=== PATIENT | female | born 1945 | race Caucasian/White ===

== ENCOUNTER 2019-02-25 10:02 | Day surgery (SDC) ==
[2019-02-11 08:41] LABS: URINE SOURCE CLEAN CATCH
--- NOTE | 2019-02-11 09:08 | EKG Report ---
Test Performed on : 02/11/2019 08:27:11 AM Test Reason : PAT Blood Pressure : / mmHG Vent. Rate : 062 BPM Atrial Rate : 062 BPM P-R Int : 150 ms QRS Dur : 134 ms QT Int : 430 ms P-R-T Axes : 065 -30 065 degrees QTc Int : 436 ms Normal sinus rhythm. Left axis deviation Right bundle branch block Abnormal ECG When compared with ECG of 13-NOV-2017 08:17, T wave inversion no longer evident in Inferior leads T wave amplitude has decreased in Lateral leads Confirmed by Joel NICOLAS, Luiz Shin ([id number]) on 02/12/2019 7:42:39 PM
[2019-02-11 09:25] LABS: BASO# 0.07 X1000 (0.0-0.2); EOS# 0.27 X1000 (0.0-0.7); HEMATOCRIT 39.5 % (37.0-47.0); HEMOGLOBIN 12.9 g/dL (12.0-16.0); LYMPH# 1.29 X1000 (1.2-3.4); MCH 30.1 PG (27-31); MCHC 32.7 g/dL (33-37); MCV 92.1 FL (81-99); MONO# 0.57 X1000 (0.11-0.59); MONO% 8.4 % (1.7-9.3); MPV 9.7 FL (7.4-10.4); NEUT% 67.6 % (42.2-75.2); PLT 346 X1000 (130-400); RBC 4.29 XMIL (4.2-5.4); RDW 12.8 % (11.5-14.5)
[2019-02-11 09:31] LABS: INR 1.06
[2019-02-11 09:32] LABS: PTT 31.2 Seconds (22.3-41.8)
[2019-02-11 09:38] LABS: HEMOGLOBIN A1C 5.5 % (4.8-6.0)
[2019-02-11 09:44] LABS: CALCIUM 9.8 mg/dL (8.8-10.2); CREATININE 1.1 mg/dL (0.5-0.9); POTASSIUM 4.4 mmol/L (3.5-5.1)
[2019-02-11 11:27] LABS: BILIRUBIN URINE NEGATIVE (NEGATIVE); BLOOD URINE TRACE (NEGATIVE); COLOR YELLOW; GLUCOSE URINE NEGATIVE (NEGATIVE); KETONE URINE TRACE mg/dL (NEGATIVE); LEUKOCYTES URINE LARGE (NEGATIVE); NITRITE URINE POSITIVE (NEGATIVE); PH URINE 5.5; PROTEIN URINE TRACE mg/dL (NEGATIVE); SP GRAVITY URINE 1.026; TURBIDITY URINE HAZY (CLEAR); UROBILINOGEN URINE NORMAL (NORMAL)
[2019-02-11 11:29] LABS: UR EPITHELIAL CELLS <10 /HPF (<10); URINE BACTERIA 4+ /HPF; URINE RBC <10 /HPF (<10); URINE WBC 20-40 /HPF (<10)
[~2019-02-25 10:02] MED LIST: CYMBALTA PO SCH; NEURONTIN PO SCH
[2019-02-25] MEDS ORDERED: DIPRIVAN 1% ONE (10:23)
[2019-02-25] MEDS ORDERED: VERSED ONE (10:23)
[2019-02-25] MEDS ORDERED: FENTANYL ONE (10:23)
[2019-02-25] MEDS ORDERED: CELEBREX ONE (10:39)
[2019-02-25] MEDS ORDERED: COLACE ONE (10:39)
[2019-02-25] MEDS ORDERED: PEPCID ONE (10:39)
[2019-02-25] MEDS ORDERED: REGLAN ONE (10:39)
[2019-02-25] MEDS ORDERED: LYRICA ONE (10:39)
[2019-02-25] MEDS ORDERED: KEFZOL 1 GM/D5W 2 GM/100 ML IVPB ONE (10:40)
[2019-02-25] MEDS ORDERED: LR 1,000 ML ONE (10:40)
[2019-02-25] MEDS ORDERED: TRANSDERM-SCOP ONE (10:51)
[2019-02-25] MEDS ORDERED: DURAMORPH ONE (11:34)
[2019-02-25] MEDS ORDERED: TORADOL ONE ×2 (11:34→13:56)
[2019-02-25] MEDS ORDERED: MARCAINE 0.25% PF ONE (11:35)
[2019-02-25] MEDS ORDERED: CYKLOKAPRON 1,000 MG/NS 1,000 MG/100 ML IVPB ONE ×2 (11:35)
[2019-02-25] MEDS ORDERED: VANCOMYCIN ONE (11:35)
[2019-02-25] MEDS ORDERED: SODIUM CHLORIDE 0.9% ONE (11:35)
[2019-02-25] MEDS ORDERED: EXPAREL 1.3% ONE (11:35)
[2019-02-25] MEDS ORDERED: XYLOCAINE-MPF 2% ONE (11:53)
[2019-02-25] MEDS ORDERED: ATROPINE ONE (12:14)
[2019-02-25] MEDS ORDERED: ZOFRAN ONE (12:17)
[2019-02-25] MEDS ORDERED: DECADRON ONE ×2 (12:17→12:19)
[2019-02-25] MEDS ORDERED: OFIRMEV 1000 MG/ISOTONIC SOLN 1,000 MG/100 ML BOTTLE ONE ×2 (12:17→12:19)
[2019-02-25 13:27] LABS: URINE SOURCE CATH
[2019-02-25 13:33] LABS: BILIRUBIN URINE NEGATIVE (NEGATIVE); BLOOD URINE NEGATIVE (NEGATIVE); COLOR YELLOW; GLUCOSE URINE NEGATIVE (NEGATIVE); KETONE URINE NEGATIVE (NEGATIVE); LEUKOCYTES URINE NEGATIVE (NEGATIVE); NITRITE URINE NEGATIVE (NEGATIVE); PROTEIN URINE NEGATIVE (NEGATIVE); SP GRAVITY URINE 1.012; TURBIDITY URINE CLEAR (CLEAR); UROBILINOGEN URINE NORMAL (NORMAL)
[2019-02-25 13:37] LABS: UR EPITHELIAL CELLS <10 /HPF (<10); URINE BACTERIA NEGATIVE /HPF; URINE RBC <10 /HPF (<10); URINE WBC <10 /HPF (<10)
[2019-02-25] MEDS ORDERED: DILAUDID ONE (14:45)
[2019-02-25] MEDS: COZAAR PO SCH (14:48)
[2019-02-25] MEDS ORDERED: NORCO-10 ONE (15:02)
--- NOTE | 2019-02-25 15:05 | Diag Imaging Result Doc PS360 ---
KNEE 1-2 VIEWS-LEFT - 02/25/2019 INDICATION: post op TECHNIQUE: Two views COMPARISON: None FINDINGS: There has been placement of a long stemmed, hinged total knee prosthesis. Alignment is anatomic. No hardware fracture or loosening. IMPRESSION: No complication. Electronically signed by Sina Mcgarry 02/25/2019 3:03 PM
[2019-02-25] MEDS ORDERED: NS 1,000 ML ONE (15:07)
[2019-02-25] MEDS ORDERED: ZOFRAN PO PRN (16:00)
[2019-02-25] MEDS ORDERED: FLU VACCINE IM ONE (16:02)
[2019-02-25] MEDS: NS 1,000 ML IV SCH (16:08)
[2019-02-25] MEDS: TEGRETOL XR PO SCH ×2 (17:47→22:21)
[2019-02-25] MEDS: NORCO-10 PO PRN (19:26)
[2019-02-25] MEDS ORDERED: TYLENOL PO SCH (20:00)
[2019-02-25] MEDS: KEFZOL 2 GM/D5W 2 GM/50 ML IVPB IV SCH (20:21)
[2019-02-25] MEDS: COLACE PO SCH (20:22)
[2019-02-25] MEDS: PERIDEX MT SCH (20:23)
[2019-02-25] MEDS ORDERED: CYMBALTA PO SCH (21:00)
[2019-02-25] MEDS ORDERED: ZOCOR PO SCH (21:00)
--- NOTE | 2019-02-25 21:29 | OPERATIVE NOTE ---
PROCEDURE DATE: 02/25/2019 PREOPERATIVE DIAGNOSIS: Degenerative osteoarthritis of the left knee. POSTOPERATIVE DIAGNOSIS: Degenerative osteoarthritis of the left knee. PROCEDURE: Left total knee arthroplasty with DePuy TC3 size 2.5 femur with a 31 mm [place] femoral sleeve with a 75 x 45 mm [place] fluted stem and a size 2.5 tibial tray with a 37 mm metaphyseal sleeve and a 75 x 12 universal fluted stem, a 17.5 mm rotating platform tibial insert, and a 32 mm round dome patella. SURGEON: Kwabena Dominguez MD SHEET [employer] WORK FURNACE INSTALLER: MARGY Burns who was necessary for retraction and manipulation of the extremity during the case and improved efficiency. SECOND ASSISTANTS: MARGY Owusu and Aldo Morris RN. ANESTHESIA: General. IV FLUIDS: 2000 mL of lactated Ringer's. ESTIMATED BLOOD LOSS: 20 mL. TOURNIQUET TIME: 100 minutes at 350 mmHg. COMPLICATIONS: None. INDICATION: The patient is a 73-year-old female with chronic history of worsening pain and discomfort of the left knee. Her pain has progressed to affect her activities of daily living. X- rays revealed degenerative osteoarthritis. Recommendation to proceed with left total knee arthroplasty was offered. Risks and benefits of surgery were explained, including the risks of anesthesia, , bleeding, infection, failure to relieve pain, postoperative stiffness, nerve injury, blood clots, and other imponderables. All questions were answered, and the patient and family wished to proceed with surgery. DETAILS OF OPERATION: The patient was taken to the operating room and placed supine on the operating table. Once adequate anesthesia was obtained, this patient's left lower extremity was subsequently prepped and draped in usual sterile fashion. Esmarch was used to exsanguinate the left lower extremity, and the tourniquet was inflated to 350 mmHg. A standard anterior incision was made with skin knife. Medial and lateral skin envelopes were developed. Standard medial parapatellar arthrotomy was then performed. Patella fat pad was excised. Superior retractors were then placed. A provisional proximal tibia resection was then performed with a saw. After this had been performed, sequential reaming was conducted into the tibia up to a size 12 and sequential reaming was conducted to the femur up to size 14. While maintaining the reamer in position, distal femoral cut was performed of the distal femur. After this had been performed, the attention was turned back to the proximal tibia where it was overreamed and was followed by sequential broaching up to a size 37 mm. A 2.5 mm tibial tray with a 37 mm capsule sleeve and a 75 x 12 trial stem were then placed and had good positioning. Attention was then turned to the distal femur where sequential broaching was then conducted up to a size 31 mm. A guide was then screwed into the broach. With knee held at approximately 90 degrees of flexion, the rotation was set. The cutting block was pinned in position. Anterior, posterior and chamfer cuts were then made. After this had been performed as well as the box cut, a box cutting guide was placed on this followed by the box cut on the distal femur. The trial femoral construct was then placed. The knee was then carried through a range of motion with good soft tissue balancing. After this had been performed, attention was then turned to the patella. It was everted and resected in standard fashion. A 32 mm patella appeared to be the correct size and corresponding holes were drilled. A trial patella component was then placed, and 2 lug holes were drilled. The patient had some lateral translation therefore a lateral release was performed with good patellofemoral tracking after this had been performed. The trial components were then removed. Copious irrigation was then performed with antibiotic pulsatile lavage. Vancomycin was mixed with cement on the back table, and the tibial and femoral construct was assembled. Attention was then turned to the tibia where cement was placed on the superior surface of the superior aspect of the bone. This was followed by size 2.5 tibial tray with the 37 mm metaphyseal sleeve and a 75 x 12 universal fluted stem. It was impacted in position, and excess cement was removed with a [place]. The 2.5 mm femoral component with the 31 mm [place] femoral sleeve and a 75 x 14 [place] fluted stem was impacted after the cement had been placed in standard fashion and had good fit. Excess cement was removed with a [place]. A trial tibial insert was then placed in full extension. Axial loading was maintained while cement cured. The patella component was cemented in standard fashion. Patella clamp was placed. While cement was curing, Exparel was placed deep in soft tissue as well as the subcutaneous tissue. After cement had cured, the 17.5 mm rotating platform tibial insert appeared to be correct size. The trial insert was removed. Exparel was placed deep in the posterior capsule. The wound was copiously once again. A 17.5 mm rotating platform tibial insert was then placed. The knee was then carried through range of motion with good soft tissue balancing and good patellofemoral tracking. A 1/8 Hemovac drain was placed and was not sewn in. Copious irrigation was then performed once again with antibiotic pulsatile lavage. #1 Vicryl was then used to repair the arthrotomy followed by 2-0 Vicryl for subcutaneous tissue and skin grupo. Sterile 4 x 4s, ABD pad, Webril, cryo unit, and Efren wrap were applied to the left lower extremity. Patient tolerated the procedure well with no complications and transferred to the recovery room in stable condition. cc: Kwabena Dominguez MD MTDD
[2019-02-25] MEDS: NEURONTIN PO SCH (22:20)
[2019-02-26] MEDS: NORCO-10 PO PRN ×3 (00:47→09:02)
[2019-02-26] MEDS: NS 1,000 ML IV SCH ×2 (00:49→08:45)
[2019-02-26] MEDS: NEURONTIN PO SCH (01:46)
[2019-02-26] MEDS: KEFZOL 2 GM/D5W 2 GM/50 ML IVPB IV SCH (04:38)
[2019-02-26] MEDS ORDERED: XARELTO PO SCH (06:00)
[2019-02-26 07:17] LABS: HEMATOCRIT 28.7 % (37.0-47.0); HEMOGLOBIN 9.3 g/dL (12.0-16.0)
[2019-02-26 07:32] VITALS: BP 137/65
[2019-02-26] MEDS: PERIDEX MT SCH (09:03)
[2019-02-26] MEDS: COLACE PO SCH (09:03)
[2019-02-26] MEDS: TEGRETOL XR PO SCH (09:03)
[2019-02-26] MEDS: COZAAR PO SCH (09:03)
[2019-02-26 09:16] LABS: CALCIUM 8.2 mg/dL (8.8-10.2); CREATININE 1.2 mg/dL (0.5-0.9); POTASSIUM 5.2 mmol/L (3.5-5.1)
--- NOTE | 2019-02-26 14:08 | ORTHOPAEDICS PROGRESS NOTE ---
DATE: 02/26/2019 SUBJECTIVE: The patient is a pleasant 73-year-old female who is 1 day status post left total knee arthroplasty. She is currently resting comfortably. OBJECTIVE: On physical examination patient's left lower extremity: Her wound looks good. There is no signs or symptoms of infection. Her calf is soft. She has active dorsiflexion and plantar flexion. She is neurovascularly intact distally. LABORATORY DATA: Her labs are pending. IMPRESSION: Postoperative day #1 status post left total knee arthroplasty. PLAN: At this point,we will begin mobilization with physical therapy. We will plan on discharging home once she is mobilizing well. We will arrange for home physical therapy. The patient will follow up in the office on 03/09/2019. cc: Kwabena Dominguez MD
== END 2019-02-26 11:48 | disposition home or self-care (01) ==
LOC: 4N 10:02 → OR 10:02
PROVIDERS: ATTEND Orthopaedic Surgery Adult Reconstructive Orthopaedic Surgery